=== PATIENT | male | born 1970 | race Caucasian/White ===

== ENCOUNTER → 2021-12-06 | Outpatient (CLI) | payer OTHER ==
[~2021-12-06] MED LIST: AUGMENTIN 875 M1 TAB PO; DIAZEPAM5 MG PO; MOTRIN800 MG PO; TRAMADOL HCL50 MG PO; VICODIN 500 MG-1 TAB PO; VICODIN ES 7501 TA1 PO
== END | disposition home or self-care (01) ==
LOC: COVID19 15:49
PROVIDERS: ATTEND Internal Medicine
DX: U07.1 COVID-19 (principal)

== ENCOUNTER 2024-05-28 17:45 | Emergency (ER) | payer OTHER | END 2024-05-28 19:39 | disposition left against medical advice (07) | LOC: ED 17:45 | DX: T63.441A Toxic effect of venom of bees, accidental (unintentional), initial encounter (principal); Z91.013 Allergy to seafood; Z88.8 Allergy status to other drugs, medicaments and biological substances; Z53.21 Procedure and treatment not carried out due to patient leaving prior to being seen by health care provider; Y92.89 Other specified places as the place of occurrence of the external cause ==